=== PATIENT | male | born 2005 | race Caucasian/White ===

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

== ENCOUNTER 2023-07-04 11:13 | Emergency (ER) | payer MEDICAID ==
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
[2023-07-04 12:11] VITALS: BP 122/72; O2SAT 99
== END 2023-07-04 12:09 | disposition home or self-care (01) ==
LOC: ED 11:13
DX: S09.90XA Unspecified injury of head, initial encounter (principal); V59.50XA Passenger in pick-up truck or van injured in collision with unspecified motor vehicles in traffic accident, initial encounter; Y92.410 Unspecified street and highway as the place of occurrence of the external cause
CPT/HCPCS: 99281; 99283

== ENCOUNTER 2023-07-28 10:15 | Outpatient (CLI) | payer MEDICAID ==
[2023-07-28 12:11] LABS: BASOPHILS % (AUTO) 0.6 %; EOSINOPHILS # (AUTO) 0.2 10^3/uL (0.0-0.7); EOSINOPHILS % (AUTO) 2.1 %; HCT - HEMATOCRIT 48.5 % (42.0-52.0); HGB - HEMOGLOBIN 15.4 g/dL (14.0-18.0); LYMPHOCYTES # (AUTO) 2.7 10^3/uL (1.5-3.5); LYMPHOCYTES % (AUTO) 38.1 %; MEAN CORPUSCULAR HEMOGLOBIN 27.9 pg (27.0-31.0); MEAN CORPUSCULAR HGB CONC 31.8 g/dL (32.0-36.0); MEAN CORPUSCULAR VOLUME 87.9 fL (80.0-94.0); MEAN PLATELET VOLUME 10.2 fL (7.4-11.4); MONOCYTES # (AUTO) 0.6 10^3/uL (0.0-1.0); NEUTROPHILS # (AUTO) 3.5 10^3/uL (1.5-6.6); NEUTROPHILS % (AUTO) 49.9 %; PLT - PLATELET COUNT 266 10^3/uL (130-450); RED BLOOD COUNT 5.52 10^6/uL (4.70-6.10); RED CELL DISTRIBUTION WIDTH 12.9 % (12.0-15.0)
[2023-07-28 12:32] LABS: ALBUMIN 4.9 g/dL (3.2-5.5); ALBUMIN/GLOBULIN RATIO 1.7 (1.0-2.2); BILIRUBIN,TOTAL 0.9 mg/dL (0.2-1.0); CALCIUM 10.3 mg/dL (8.5-10.3); TOTAL PROTEIN 7.8 g/dL (6.4-8.9)
== END 2023-07-28 10:30 | disposition home or self-care (01) ==
LOC: LAB.N 10:15
PROVIDERS: ATTEND Physician Assistant Medical
DX: R10.9 Unspecified abdominal pain (principal)
CPT/HCPCS: 36415; 80053; 82150; 83690; 85025

== ENCOUNTER 2023-08-10 10:52 | Emergency (ER) | payer MEDICAID ==
[2023-08-10 11:03] VITALS: O2SAT 100
[2023-08-10 11:16] LABS: BASOPHILS # (AUTO) 0.1 10^3/uL (0.0-0.1); BASOPHILS % (AUTO) 0.6 %; EOSINOPHILS # (AUTO) 0.1 10^3/uL (0.0-0.7); EOSINOPHILS % (AUTO) 1.7 %; HCT - HEMATOCRIT 46.2 % (42.0-52.0); HGB - HEMOGLOBIN 15.2 g/dL (14.0-18.0); LYMPHOCYTES # (AUTO) 2.3 10^3/uL (1.5-3.5); LYMPHOCYTES % (AUTO) 29.8 %; MEAN CORPUSCULAR HEMOGLOBIN 28.1 pg (27.0-31.0); MEAN CORPUSCULAR HGB CONC 32.9 g/dL (32.0-36.0); MEAN CORPUSCULAR VOLUME 85.6 fL (80.0-94.0); MEAN PLATELET VOLUME 9.6 fL (7.4-11.4); MONOCYTES # (AUTO) 0.6 10^3/uL (0.0-1.0); NEUTROPHILS # (AUTO) 4.6 10^3/uL (1.5-6.6); NEUTROPHILS % (AUTO) 59.8 %; PLT - PLATELET COUNT 257 10^3/uL (130-450); RED CELL DISTRIBUTION WIDTH 13.2 % (12.0-15.0); WHITE BLOOD COUNT 7.7 x10^3/uL (4.8-10.8)
[2023-08-10 11:29] LABS: ALBUMIN 4.8 g/dL (3.2-5.5); ALBUMIN/GLOBULIN RATIO 1.5 (1.0-2.2); BILIRUBIN,TOTAL 0.7 mg/dL (0.2-1.0); CALCIUM 10.3 mg/dL (8.5-10.3); POTASSIUM 3.6 mmol/L (3.5-4.5)
--- NOTE | 2023-08-10 12:08 | XRAY Report ---
PROCEDURE: Abdomen 1 View X-Ray INDICATIONS: constipation TECHNIQUE: One view of the abdomen acquired. COMPARISON: None. FINDINGS: Surgical changes and devices: None. Bowel: Bowel gas pattern is normal. Moderate diffuse colonic stool. Soft tissues: No suspicious abdominal calcifications. Visualized solid organ contours appear normal in size. Bones: No suspicious bony lesions. IMPRESSION: No acute process. Reviewed by: Celeste Rao MD on 08/10/2023 12:07 PM [facility] Approved by: Celeste Rao MD on 08/10/2023 12:07 PM [facility] Station ID: [id number]
--- NOTE | 2023-08-10 12:23 | ED Physician Documentation ---
PD HPI ABD PAIN - Stated complaint Stated Complaint: LOWER ABD PX - Chief complaint Chief Complaint: Abd Pain - History obtained from History obtained from: Patient - Additional information Additional information: Patient is a 17-year-old male presenting for evaluation of intermittent episodes of lower abdominal pain that he states have been going on for 2 years. He states that the current episode has been going on for 4 days. He had a similar episode last week and went to the walk-in clinic. He states he has not had a bowel movement in a few days and often has issues with bowel movements. He has tried a stool softener that he takes once a day which has not helped. When he went to the walk-in clinic last week and they sent a referral to GI. They also recommended he take something with fiber but he does not recall the name and was not able to pick this up. He also had labs done that were unremarkable. He denies any nausea and vomiting and states that his appetite has been normal. No prior history of abdominal surgeries. No fever, chest pain or shortness of air. No dysuria or hematuria. Review of Systems Constitutional: denies: Fever Cardiac: denies: Chest pain / pressure Respiratory: denies: Dyspnea GI: reports: Abdominal Pain. denies: Nausea, Vomiting, Diarrhea PD PAST MEDICAL HISTORY - Past Medical History Past Medical History: No Cardiovascular: None Respiratory: None Neuro: None Endocrine/Autoimmune: None GI: None : None HEENT: None Psych: Depression, ADD/ADHD Musculoskeletal: None Derm: None - Past Surgical History Past Surgical History: Yes Ortho: Other - Present Medications Home Medications: Ambulatory Orders Medication Instructions Recorded Confirmed polyethylene glycoL 3350(BULK) 17 gm PO DAILY PRN #1 each 08/10/23 [Miralax] - Allergies Allergies/Adverse Reactions: Allergies Allergy/AdvReac Type Severity Reaction Status Date / Time Penicillins Allergy Intermediate Rash Verified 08/10/23 11:00 - Social History Does the pt smoke?: No Smoking Status: Never smoker Does the pt drink ETOH?: No Does the pt have substance abuse?: No - Immunizations Immunizations are current?: Yes Immunizations: Other immun not current - POLST Patient has POLST: No PD ED PE NORMAL - General General: Alert and oriented X 3, No acute distress, Well developed/nourished - HEENT HEENT: Atraumatic, Moist mucous membranes, Pharynx benign - Neck Neck: Supple, no meningeal sign - Cardiac Cardiac: RRR, No murmur - Respiratory Respiratory: No respiratory distress, Clear bilaterally - Abdomen Abdomen: Normal bowel sounds, Soft, Non tender, Non distended - Derm Derm: Warm and dry - Neuro Neuro: Normal speech Results - Vitals Vitals: Vital Signs - 24 hr 08/10/23 08/10/23 08/10/23 10:55 11:00 12:35 Temperature 36.6 C 98.6 C H Heart Rate 89 98 76 Respiratory 16 14 16 Rate Blood Pressure 140/78 H 135/90 H 120/74 O2 Saturation 100 100 Oxygen O2 Source Room air - Labs Labs: Laboratory Tests 08/10/23 08/10/23 11:12 11:12 WBC 7.7 RBC 5.40 Hgb 15.2 Hct 46.2 MCV 85.6 MCH 28.1 MCHC 32.9 RDW 13.2 Plt Count 257 MPV 9.6 Neut # (Auto) 4.6 Lymph # (Auto) 2.3 [place] # (Auto) 0.6 Eos # (Auto) 0.1 Baso # (Auto) 0.1 Absolute Nucleated RBC 0.00 Nucleated RBC % 0.0 Sodium 138 Potassium 3.6 Chloride 104 Carbon Dioxide 29 Anion Gap 5.0 L BUN 16 Creatinine 1.0 Estimated GFR (MDRD) 96 Glucose 103 Calcium 10.3 Total Bilirubin 0.7 AST 15 ALT 17 Alkaline Phosphatase 72 Total Protein 8.0 Albumin 4.8 Globulin 3.2 Albumin/Globulin Ratio 1.5 Lipase 28 PD Medical Decision Making - ED course Complexity details: reviewed results, re-evaluated patient, d/w patient ED course: Patient is a 17-year-old male presenting for evaluation of lower abdominal pain that has been intermittent with episodes over the past 2 years. Vital signs are stable and abdominal exam is benign. Labs including CBC and chemistries were obtained and reviewed and without significant findings. No right lower quadrant tenderness to suggest appendicitis and history also does not support appendicitis. An x-ray was obtained which does show moderate stool burden. I recommend trial of MiraLAX and close outpatient follow-up. Patient has been tolerating p.o. and denies any nausea or vomiting. Patient counseled on concerning symptoms to return for. Departure - Departure Disposition: 01 Home, Self Care Clinical Impression: Intermittent abdominal pain, Constipation Condition: Stable Instructions: ED Constipation Prescriptions: polyethylene glycoL 3350(BULK) [Miralax] 17 gm PO DAILY PRN #1 each PRN Reason: Constipation Comments: Your labs are reassuring and it seems that your pain is coming and going. Your x-ray does show a moderate amount of stool and I do think you should use MiraLAX regularly to help with regular bowel movements. I sent a prescription to [facility]. Please follow-up with your primary care provider or GI. Return to the ER if you develop worsening symptoms such as vomiting. Forms: PCP List, Activity restrictions Discharge Date/Time: 08/10/23 12:36
[2023-08-10 12:43] VITALS: BP 120/74
== END 2023-08-10 12:36 | disposition home or self-care (01) ==
LOC: ED 10:52
DX: K59.00 Constipation, unspecified (principal)
CPT/HCPCS: 36415; 80053; 83690; 85025; 99283; 99284

== ENCOUNTER 2023-09-14 11:49 | Outpatient (CLI) | payer MEDICAID | END 2023-09-14 11:50 | disposition critical access hospital (66) | LOC: EMS 11:49 | DX: R07.1 Chest pain on breathing (principal); R05.9 Cough, unspecified | CPT/HCPCS: A0425; A0429; A0999 ==

== ENCOUNTER 2023-09-14 12:09 | Emergency (ER) | payer MEDICAID ==
--- NOTE | 2023-09-14 12:45 | XRAY Report ---
PROCEDURE: Chest 1V INDICATIONS: CP TECHNIQUE: One view of the chest was acquired. COMPARISON: None. FINDINGS: Surgical changes and devices: None. Lungs and pleura: No pleural effusions or pneumothorax. Lungs are clear. Mediastinum: Mediastinal contours appear normal. Heart size is normal. Bones and chest wall: No suspicious bony lesions. Overlying soft tissues appear unremarkable. IMPRESSION: No acute cardiopulmonary process. Reviewed by: Celeste Rodriguez MD on 09/14/2023 12:44 PM [facility] Approved by: Celeste Rodriguez MD on 09/14/2023 12:44 PM [facility] Station ID: [id number]
[2023-09-14 13:02] VITALS: BP 128/81; O2SAT 100
[2023-09-14 13:16] LABS: BASOPHILS # (AUTO) 0.1 10^3/uL (0.0-0.1); BASOPHILS % (AUTO) 0.6 %; EOSINOPHILS % (AUTO) 0.4 %; HCT - HEMATOCRIT 45.9 % (42.0-52.0); HGB - HEMOGLOBIN 15.3 g/dL (14.0-18.0); LYMPHOCYTES % (AUTO) 19.6 %; MEAN CORPUSCULAR HEMOGLOBIN 28.9 pg (27.0-31.0); MEAN CORPUSCULAR HGB CONC 33.3 g/dL (32.0-36.0); MEAN CORPUSCULAR VOLUME 86.8 fL (80.0-94.0); MEAN PLATELET VOLUME 9.6 fL (7.4-11.4); MONOCYTES # (AUTO) 0.7 10^3/uL (0.0-1.0); MONOCYTES % (AUTO) 6.3 %; NEUTROPHILS # (AUTO) 7.6 10^3/uL (1.5-6.6); NEUTROPHILS % (AUTO) 72.8 %; PLT - PLATELET COUNT 267 10^3/uL (130-450); RED BLOOD COUNT 5.29 10^6/uL (4.70-6.10); RED CELL DISTRIBUTION WIDTH 13.4 % (12.0-15.0); WHITE BLOOD COUNT 10.4 x10^3/uL (4.8-10.8)
--- NOTE | 2023-09-14 13:22 | ED Physician Documentation ---
PD HPI CHEST PAIN - Stated complaint Stated Complaint: CP - Chief complaint Chief Complaint: Cardiac - History obtained from History obtained from: Patient - Additional information Additional information: Patient is a 17-year-old male with no significant past medical history presenting for evaluation of left-sided chest pain that started around 8:00 when he was just sitting down. He states an hour prior to that he had had an energy drink. He describes it as a sharp poking sensation. He reports the pain is better than when it started. Denies history of coronary artery disease, family history of early CAD, prior arrhythmias or cardiac issues. Does not take any medications. Does vape. Does not use alcohol regularly or other drug use. No recent travel or immobilization. No history of PE or DVT. No recent illness. Review of Systems Constitutional: denies: Fever Cardiac: reports: Chest pain / pressure Respiratory: denies: Dyspnea GI: denies: Abdominal Pain Musculoskeletal: denies: Extremity swelling PD PAST MEDICAL HISTORY - Past Medical History Past Medical History: Yes Cardiovascular: None Respiratory: None Neuro: None Endocrine/Autoimmune: None GI: None : None HEENT: None Psych: Depression, ADD/ADHD Musculoskeletal: None Derm: None - Past Surgical History Past Surgical History: Yes Ortho: Other - Present Medications Home Medications: Ambulatory Orders Medication Instructions Recorded Confirmed No Known Home Medications 09/14/23 09/14/23 - Allergies Allergies/Adverse Reactions: Allergies Allergy/AdvReac Type Severity Reaction Status Date / Time Penicillins Allergy Intermediate Rash Verified 09/14/23 12:16 - Social History Does the pt smoke?: No Smoking Status: Never smoker Does the pt drink ETOH?: No Does the pt have substance abuse?: No - Immunizations Immunizations are current?: Yes Immunizations: Other immun not current - POLST Patient has POLST: No PD ED PE NORMAL - General General: Alert and oriented X 3, No acute distress, Well developed/nourished - HEENT HEENT: Atraumatic, Moist mucous membranes, Pharynx benign - Neck Neck: Supple, no meningeal sign - Cardiac Cardiac: RRR, Strong equal pulses, Other (No chest wall tenderness or crepitus) - Respiratory Respiratory: No respiratory distress, Clear bilaterally - Abdomen Abdomen: Soft, Non tender, Non distended - Derm Derm: Warm and dry - Extremities Extremities: No edema Results - Vitals Vitals: Vital Signs - 24 hr 09/14/23 09/14/23 12:11 12:59 Temperature 36.0 C L Heart Rate 86 84 Respiratory 16 20 Rate Blood Pressure 129/96 H 128/81 H O2 Saturation 98 100 Oxygen O2 Source Room air - EKG (time done) 1238 EKG releavant findings:: EKG personally interpreted by author of this note. Relevant findings are: Rate 77, normal sinus rhythm, no STEMI, no ST depressions, QTc 393 - Labs Labs: Laboratory Tests 09/14/23 09/14/23 13:11 13:11 WBC 10.4 RBC 5.29 Hgb 15.3 Hct 45.9 MCV 86.8 MCH 28.9 MCHC 33.3 RDW 13.4 Plt Count 267 MPV 9.6 Neut # (Auto) 7.6 H Lymph # (Auto) 2.0 [place] # (Auto) 0.7 Eos # (Auto) 0.0 Baso # (Auto) 0.1 Absolute Nucleated RBC 0.00 Nucleated RBC % 0.0 Sodium 138 Potassium 4.3 Chloride 101 Carbon Dioxide 30 Anion Gap 7.0 BUN 10 Creatinine 0.9 Estimated GFR (MDRD) 109 Glucose 101 Calcium 10.1 Magnesium 1.8 Troponin I High Sens < 2.3 L PD Medical Decision Making - ED course Complexity details: reviewed results, re-evaluated patient, d/w patient ED course: Patient is a 17-year-old male presenting for evaluation of chest pain. He has no risk factors for ACS. PERC negative. Doubt dissection. Patient has no recent viral symptoms. Labs and EKG were obtained and reviewed without significant findings including no findings to suggest cardiac ischemia or myoca rditis. Chest x-ray which I reviewed shows normal heart size and no pneumothorax or consolidation. Patient counseled on continued supportive care as well as concerning symptoms to return for. I also encouraged him to avoid caffeine or energy drinks as he did report having this prior to the onset of his symptoms. Departure - Departure Disposition: 01 Home, Self Care Clinical Impression: Chest pain Condition: Stable Instructions: ED Chest Pain NonCardiac Comments: The exact cause for your chest pain is unclear at this time. Your testing does not show signs of a heart attack or an irregular rhythm. Your chest x-ray is clear. Please continue with anti-inflammatory such as acetaminophen or ibuprofen. Please avoid caffeinated drinks or energy drinks. I would recommend close follow-up with your primary care provider. If your symptoms recur or return, Please consider coming back to the emergency department. Forms: PCP List Discharge Date/Time: 09/14/23 13:55
[2023-09-14 13:36] LABS: BUN - BLOOD UREA NITROGEN 10 mg/dL (6-20); CALCIUM 10.1 mg/dL (8.5-10.3); CARBON DIOXIDE - CO2 30 mmol/L (21-32); CHLORIDE 101 mmol/L (101-111); CREATININE 0.9 mg/dL (0.6-1.3); GFR - MDRD 109 (>89); GLUCOSE 101 mg/dL (74-104); MAGNESIUM 1.8 mg/dL (1.7-2.3); POTASSIUM 4.3 mmol/L (3.5-4.5); SODIUM 138 mmol/L (135-145)
[2023-09-14 13:46] LABS: TROPONIN I HIGH SENSITIVITY < 2.3 ng/L (2.3-19.7)
== END 2023-09-14 13:55 | disposition home or self-care (01) ==
LOC: EDUNIT# → ED 12:09
DX: R07.9 Chest pain, unspecified (principal)
CPT/HCPCS: 36415; 80048; 83735; 84484; 85025; 93005; 99283; 99284